=== PATIENT | female | born 1955 | race Caucasian/White ===

== ENCOUNTER → 2017-05-27 | Outpatient (CLI) | payer OTHER | LOC: M.RAD 11:16 | DX: I10 Essential (primary) hypertension (principal); E11.9 Type 2 diabetes mellitus without complications; J02.9 Acute pharyngitis, unspecified; J06.9 Acute upper respiratory infection, unspecified; E78.00 Pure hypercholesterolemia, unspecified; E66.01 Morbid (severe) obesity due to excess calories ==

== ENCOUNTER 2018-07-23 10:32 | Emergency (ER) | payer OTHER ==
[~2018-07-23] VITALS: Ht 170.2 cm; Wt 112.5 kg
[2018-07-23] MEDS ORDERED: METFORMIN HCL500 MG PO (10:48)
[2018-07-23] MEDS ORDERED: MAGOX 400400 MG PO (10:49)
[2018-07-23] MEDS ORDERED: GLIPIZIDE 10 MG10 MG PO (10:49)
[2018-07-23] MEDS ORDERED: OSTERA TABLET1 EAC1 PO (10:49)
[2018-07-23] MEDS ORDERED: COZAAR 25 MG TA25 M1 PO (10:49)
[2018-07-23] MEDS ORDERED: UNICOMPLEX M TA1 TA1 PO (10:49)
[2018-07-23 11:35] LABS: ABSOLUTE LYMPHOCYTES 0.4 thou/uL (0.8-5.3); ABSOLUTE MONOCYTES 0.3 thou/uL (0.0-1.2); ABSOLUTE NEUTROPHILS 3.8 thou/uL (1.6-8.1); BASOPHILS 0.5 %; HEMATOCRIT 35.4 % (37.0-47.0); LYMPHOCYTES 8.7 %; MCH 28.8 pg (26.0-34.0); MCHC 33.9 g/dL (28.0-37.0); MCV 84.9 fL (80.0-100.0); MONOCYTES 6.1 %; MPV 11.2 fl. (7.2-11.1); NUCLEATED RBCS 0 /100WBC; PLATELET COUNT* 101 thou/uL (150-400); POLYS 84.7 %; RBC 4.18 mil/uL (4.20-5.00); RDW-CV 13.6 % (10.5-14.5); WBC 4.5 thou/uL (4.0-11.0)
[2018-07-23 11:37] LABS: ANION GAP 14 mmol/L (7-16); BUN 18 mg/dL (7-18); CALCIUM 9.2 mg/dL (8.5-10.1); CHLORIDE 91 mmol/L (98-107); CO2 22 mmol/L (21-32); CREATININE 0.9 mg/dL (0.6-1.3); GLUCOSE 354 mg/dL (70-99); POTASSIUM 4.1 mmol/L (3.5-5.1); SODIUM 127 mmol/L (136-145)
[2018-07-23 11:48] LABS: ALBUMIN 2.9 g/dL (3.4-5.0); ALKALINE PHOSPHATASE 107 U/L (46-116); NT-PRO BRAIN NAT PEPTIDE 214 pg/mL (<300); SGOT 117 U/L (15-37); SGPT 95 U/L (30-65); TOTAL BILIRUBIN 1.2 mg/dL (<0.1-1.0); TOTAL PROTEIN 7.3 g/dL (6.4-8.2); TROPONIN-I LEVEL <0.06 ng/mL (<0.06)
[2018-07-23 11:50] LABS: URINE BILIRUBIN 1+ (Negative); URINE BLOOD TRACE (Negative); URINE CLARITY CLEAR; URINE COLOR YELLOW; URINE GLUCOSE-RANDOM 2+ (Negative); URINE KETONES 2+ (Negative); URINE LEUKOCYTES-REFLEX NEGATIVE (Negative); URINE NITRITE-REFLEX NEGATIVE (Negative); URINE PROTEIN 1+ (Negative); URINE SPECIFIC GRAVITY >= 1.030 (1.005-1.030)
[2018-07-23 11:51] LABS: ICTOTEST (BILI CONFIRMATORY) Positive (Negative)
[2018-07-23] MEDS ORDERED: LOPERAMIDE 2 MG2 M1 PO (14:26)
[2018-07-23] MEDS ORDERED: ZOFRAN ODT4 MG PO (14:26)
[2018-07-23 14:55] VITALS: BP 125/58
--- NOTE | 2018-07-23 17:19 | EKG ---
[place] [address] ELECTROCARDIOGRAM REPORT Name: KENNETHSONY Criselda Room: [facility]#: [id number] Admission: 07/23/18 Attend Phys: Discharge: 07/23/18 Date of : 53 Report #: [id number] THIS REPORT FOR: //name// [facility] ED Test Date: 2018-07-23 Test Time: 10:59:11 Pat Name: SONY COOPER Department: Room: Gender: F [place] Supervisor: : [id number] Requested By: Tiffany Key Order Number: [id number] MD: Anam Reese Measurements Intervals [place] Rate: 96 P: 35 [place]: 143 QRS: 3 QRSD: 98 T: 16 QT: 325 QTc: 411 Interpretive Statements Sinus tachycardia Atrial premature complex Inferior infarct, old, possible No previous ECG available for comparison Electronically Signed On 07-23-2018 17:19:42 CDT by Anam Reese [email or web address] <ELECTRONICALLY SIGNED> By: Anam Reese MD, [facility] 07/23/18 1719 1059 1059 Anam Reese MD, FACC /EPI
== END 2018-07-23 15:00 | disposition home or self-care (01) ==
LOC: M.ERS 10:32
PROVIDERS: Physician Assistant
DX: E11.65 Type 2 diabetes mellitus with hyperglycemia (principal); K76.0 Fatty (change of) liver, not elsewhere classified; R11.2 Nausea with vomiting, unspecified; R19.7 Diarrhea, unspecified